=== PATIENT | female | born 1985 | race Two or more races ===

== ENCOUNTER 2016-12-18 23:15 | Emergency (ER) | payer OTHER ==
[2016-12-18 23:19] VITALS: BP 152/109
[2016-12-19] MEDS ORDERED: Ketorolac INJ* 60 MG/2 ML VIAL IM ONE (01:11)
[2016-12-19] MEDS ORDERED: HYDROmorphone* 2 MG/ML 1 ML SYR IM ONE (01:12)
[2016-12-19] MEDS ORDERED: Diazepam TAB(*) 5 MG PO ONE (01:12)
--- NOTE | 2016-12-19 06:50 | ED ---
Andrae Ortega Rebecca, scribed for Hoang Sanford MD on 12/19/16 at 0117 . Back Pain - HPI Summary HPI Summary: Pt is a 31 y/o F who presents to ED c/o acute on chronic lumbar back pain. Starting yesterday morning, the pt began experiencing worsening back pain which is currently severe, ranked 10/10. Pain is in the lumbar back with radiation down the RLE. Pain is characterized as spasmodic and tight with burning in the upper portion of the back, between the shoulder blades. Sx aggravated by movement, alleviated by nothing, unchanged by all of her home chronic pain medication (Lyrica, Dilaudid, slow-release Morphine, 600 mg Ibuprofen and a muscle relaxant). Denies N/V. PMHx scoliosis and PSHx spinal fusion. States that she intermittently experiences exacerbations of chronic back pain, necessitating an ED visit to alleviate pain. No recent spinal injections. - History of Current Complaint Chief Complaint: EDBackInjuryPain Stated Complaint: BACK PAIN Time Seen by Provider: 12/19/16 00:50 Hx Obtained From: Patient Onset/Duration: Still Present Back Pain Location: Is Discrete @ - Lumbar back and upperback between the shoulder blades, Radiates To - RLE Severity Currently: Severe Pain Intensity: 10 Pain Scale Used: 0-10 Numeric Character: Spasmodic, Burning - Upper back between the shoulder blades Aggravating Symptom(s): Movement Alleviating Symptom(s): Nothing - Allergies/Home Medications Allergies/Adverse Reactions: Allergies Allergy/AdvReac Type Severity Reaction Status Date / Time No Known Allergies Allergy Verified 12/19/16 00:54 PMH/Surg Hx/FS Hx/Imm Hx Endocrine/Hematology History: Denies: Hx Anticoagulant Therapy, Hx Diabetes Cardiovascular History: Denies: Hx Hypertension, Hx Pacemaker/ICD Respiratory History: Denies: Hx Asthma History: Reports: Hx Kidney Stones Denies: Hx Renal Disease Musculoskeletal History: Reports: Hx Back Problems, Hx Fibromyalgia - dx 2008, Hx Scoliosis Sensory History: Reports: Hx Contacts or Glasses - reading Denies: Hx Hearing Aid Opthamlomology History: Reports: Hx Contacts or Glasses - reading Neurological History: Reports: Hx Migraine, Other Neuro Impairments/Disorders - PAIN CLINIC PT Psychiatric History: Reports: Hx Anxiety, Hx Depression Denies: Hx Panic Disorder - Surgical History Surgery Procedure, Year, and Place: Spinal fusion 2000 [facility] Infectious Disease History: No Infectious Disease History: Denies: Traveled Outside the [place] in Last 30 Days - Family History Known Family History: Negative: Diabetes - Social History Alcohol Use: Occasionally Substance Use Type: Reports: Prescribed Substance Use Comment - Amount & Last Used: hydromorphone Smoking Status (MU): Current Every Day Smoker Type: Cigarettes Amount Used/How Often: Less then 10 cigarettes per day Have You Smoked in the Last Year: Yes Review of Systems Negative: Vomiting, Nausea Positive: Other - Lumbar back pain with radiation down the RLE, upper back pain between the shoulder blades All Other Systems Reviewed And Are Negative: Yes Physical Exam - Summary Physical Exam Summary: The patient is well-nourished in mild distress. The skin is warm and dry and skin color reflects adequate perfusion. HEENT: The head is normocephalic and atraumatic. The pupils are equal and reactive and not pinpoint. The conjunctivae are clear and without drainage. Nares are patent and without drainage. Mouth reveals moist mucous membranes and the throat is without erythema and exudate. The external ears are intact. The ear canals are patent and without drainage. The tympanic membranes are intact. Neck is supple with full range of motion and non-tender. Respiratory: Chest is non-tender. Lungs are clear to auscultation and breath sounds are symmetrical and equal. Cardiovascular: Hear is regular rate and rhythm. There is no murmur or rub auscultated. There is no peripheral edema and pulses are symmetrical and equal. Abdomen: The abdomen is soft and non-tender. There are normal bowel sounds heard in all four quadrants and there is no organomegaly palpated. Musculoskeletal: Some muscle spasms in her thoracic spine and has pain between the shoulder blades on both sides. Tenderness of the lower part of the spine, but no muscle spasms. Extremities are non-tender with full range of motion. There is good capillary refill. There is no peripheral edema or calf tenderness elicited. Good pulses distally. Neurological: Patient is alert and oriented to person, place and time. The patient has symmetrical motor strength in all four extremities. Deep tendon reflexes are symmetrical and equal in all four extremities. Psychiatric: The patient has an appropriate affect and does not exhibit any anxiety or depression. Triage Information Reviewed: Yes Vital Signs On Initial Exam: Initial Vitals Temp Pulse Resp BP Pulse Ox 98.8 F 119 17 152/109 98 12/18/16 23:16 12/18/16 23:16 12/18/16 23:16 12/18/16 23:16 12/18/16 23:16 Vital Signs Reviewed: Yes Diagnostics - Vital Signs Vital Signs Temp Pulse Resp BP Pulse Ox 12/18/16 23:16 98.8 F 119 17 152/109 98 - Laboratory Lab Statement: Any lab studies that have been ordered have been reviewed, and results considered in the medical decision making process. Back Pain Course/Dx - Course Assessment/Plan: Pt is a 31 y/o F who presents to ED c/o acute on chronic lumbar back pain. Starting yesterday morning, the pt began experiencing worsening back pain which is currently severe, ranked 10/10. Pain is in the lumbar back with radiation down the RLE. Pain is characterized as spasmodic and tight with burning in the upper portion of the back, between the shoulder blades. Sx aggravated by movement, alleviated by nothing, unchanged by all of her home chronic pain medication (Lyrica, Dilaudid, slow-release Morphine, 600 mg Ibuprofen and a muscle relaxant). Denies N/V. PMHx scoliosis and PSHx spinal fusion. States that she intermittently experiences exacerbations of chronic back pain, necessitating an ED visit to alleviate pain. No recent spinal injections. In the ED course, pt was given Valium, Dilaudid and Toradol. She will be D/C to home with Dx of acute exacerbation of chronic low back pain with a follow up with her PCP. She understands and agrees. Elevated BP noted and advised to f/u with PCP. - Diagnoses Provider Diagnoses: Acute exacerbation of chronic low back pain Discharge - Discharge Plan Condition: Stable Disposition: HOME Patient Education Materials: Chronic Back Pain (ED), Lower Back Exercises (ED) Referrals: Gertrude Gallagher MD [Primary Care Provider] - 3 Days The documentation as recorded by the Andrae coelho Rebecca accurately reflects the service I personally performed and the decisions made by me, Hoang Sanford MD.
== END 2016-12-19 02:08 | disposition home or self-care (01) ==
LOC: ED 23:15
DX: M54.5 Low back pain (principal); G89.29 Other chronic pain; F17.210 Nicotine dependence, cigarettes, uncomplicated
CPT/HCPCS: 99282; A9270-GY; J1170; J1885

== ENCOUNTER 2017-01-02 23:27 | Emergency (ER) | payer OTHER ==
[2017-01-03] MEDS ORDERED: NS 0.9% 1000 ML* 1,000 ML IV ONE (00:39)
[2017-01-03] MEDS ORDERED: Ondansetron INJ* 2 MG/ML VIAL IV ONE (00:39)
[2017-01-03] MEDS ORDERED: Ketorolac INJ* 30 MG/ML 1 ML VIAL IV PUSH ONE (00:46)
--- NOTE | 2017-01-03 00:51 | ED ---
GI/ HPI - HPI Summary HPI Summary: 31F presents with nausea, vomiting diarrhea for couple hours. she ate something different at a friends. She denies any one else with similar symptoms. She states had abdominal pain that resolved after she vomited. She denies any blood in her stool. She states they had spaghetti and meat balls. She denies any fever. She denies any previous abdominal surgeries. She denies any cough or sore throat. She denies any flank pain or dysuria. She takes morphine and Dilaudid for chronic back pain. - History of Current Complaint Chief Complaint: EDNauseaVomitDiarrh Time Seen by Provider: 01/03/17 00:38 Stated Complaint: ABD PAIN Pain Intensity: 4 - Allergy/Home Medications Allergies/Adverse Reactions: Allergies Allergy/AdvReac Type Severity Reaction Status Date / Time No Known Allergies Allergy Verified 01/03/17 03:54 PMH/Surg Hx/FS Hx/Imm Hx Endocrine/Hematology History: Denies: Hx Anticoagulant Therapy, Hx Diabetes Cardiovascular History: Denies: Hx Hypertension, Hx Pacemaker/ICD Respiratory History: Denies: Hx Asthma History: Reports: Hx Kidney Stones Denies: Hx Renal Disease Musculoskeletal History: Reports: Hx Back Problems, Hx Fibromyalgia - dx 2008, Hx Scoliosis Sensory History: Reports: Hx Contacts or Glasses - reading Denies: Hx Hearing Aid Opthamlomology History: Reports: Hx Contacts or Glasses - reading Neurological History: Reports: Hx Migraine, Other Neuro Impairments/Disorders - PAIN CLINIC PT Psychiatric History: Reports: Hx Anxiety, Hx Depression Denies: Hx Panic Disorder - Surgical History Surgery Procedure, Year, and Place: Spinal fusion 2000 [facility] Infectious Disease History: No Infectious Disease History: Denies: Traveled Outside the [place] in Last 30 Days - Family History Known Family History: Negative: Diabetes - Social History Alcohol Use: Occasionally Substance Use Type: Reports: Prescribed Substance Use Comment - Amount & Last Used: hydromorphone Smoking Status (MU): Current Every Day Smoker Type: Cigarettes Amount Used/How Often: Less then 10 cigarettes per day Have You Smoked in the Last Year: Yes Review of Systems Negative: Fever Negative: Chest Pain Negative: Shortness Of Breath Positive: Abdominal Pain, Vomiting, Diarrhea, Nausea All Other Systems Reviewed And Are Negative: Yes Physical Exam Triage Information Reviewed: Yes Vital Signs On Initial Exam: Initial Vitals Temp Pulse Resp BP Pulse Ox 97.4 F 122 18 101/52 98 01/02/17 23:28 01/02/17 23:28 01/02/17 23:28 01/02/17 23:28 01/02/17 23:28 Vital Signs Reviewed: Yes Appearance: Positive: Well-Appearing Skin: Positive: Warm, Dry Head/Face: Positive: Normal Head/Face Inspection Eyes: Positive: Normal, EOMI, FELICITAS, Conjunctiva Clear ENT: Positive: Normal ENT inspection, Pharynx normal, TMs normal Respiratory/Lung Sounds: Positive: Clear to Auscultation, Breath Sounds Present Cardiovascular: Positive: Normal, RRR Abdomen Description: Positive: Nontender, Soft Bowel Sounds: Positive: Present Diagnostics - Vital Signs Vital Signs Temp Pulse Resp BP Pulse Ox 01/02/17 23:28 97.4 F 122 18 101/52 98 - Laboratory Result Diagrams: 01/03/17 01:16 01/03/17 01:16 Lab Statement: Any lab studies that have been ordered have been reviewed, and results considered in the medical decision making process. GIGU Course/Dx - Course Course Of Treatment: 31F presents with nausea, vomiting diarrhea for couple hours. she ate something different at a friends. She denies any one else with similar symptoms. She states had abdominal pain that resolved after she vomited. She denies any blood in her stool. She states they had spaghetti and meat balls. She denies any fever. She denies any previous abdominal surgeries. She denies any cough or sore throat. She denies any flank pain or dysuria. abdomen nontender. gave zofran and fluids and patietn able to tolerate oral intake. - Diagnoses Differential Diagnoses - Female: Gastroenteritis (Viral), Gastroenteritis ( Bacterial), Urinary Tract Infection, Vomiting Provider Diagnoses: Nausea vomiting and diarrhea Discharge - Discharge Plan Condition: Good Disposition: HOME Prescriptions: Ondansetron ODT TAB* [Zofran 4 MG Odt TAB*] 4 mg PO Q6H PRN #20 tab.odt PRN Reason: Nausea Patient Education Materials: Acute Nausea and Vomiting (ED) Referrals: Gertrude Gallagher MD [Primary Care Provider] - Additional Instructions: Can take Zofran every 6 hours as needed for nausea Drink small amounts of fluid as tolerated When able to eat follow BRAT diet: Bananas, rice, applesauce, toast Take ibuprofen or Tylenol for pain as needed every 6 hours Follow up with primary within 5 days Return to ED if develop fever that does not respond to Tylenol or ibuprofen, severe abdominal pain, or any new or worsening symptoms
[2017-01-03 01:39] LABS: Hematocrit 48 % (35-47); Mean Corpuscular HGB Conc 33 g/dl (31-36); Mean Corpuscular Hemoglobin 28 pg (27-31); Mean Corpuscular Volume 84 fL (80-97); Mean Platelet Volume 8 um3 (7.4-10.4); Red Blood Count 5.69 10^6/ul (4.0-5.4); Red Cell Distribution Width 15 % (10.5-15); White Blood Count 14.6 10^3/ul (3.5-10.8)
[2017-01-03] MEDS ORDERED: Ondansetron ODT TAB* 4 MG PO ONE ×2 (01:41→02:51)
[2017-01-03 01:55] LABS: ALT 14 U/L (7-52); AST 18 U/L (13-39); Albumin 4.8 g/dL (3.2-5.2); Alkaline Phosphatase 90 U/L (34-104); Anion Gap 10 mmol/L (2-11); BUN/Creatinine Ratio 18.1 (8-20); Blood Urea Nitrogen 19 mg/dL (6-24); CO2 Carbon Dioxide 24 mmol/L (22-32); Calcium 9.8 mg/dL (8.6-10.3); Chloride 102 mmol/L (101-111); EGFR African American 79.7 (>60); Globulin 4.1 g/dL (2-4); Glucose 114 mg/dL (70-100); Lipase < 10 U/L (11.0-82.0); Potassium 4.2 mmol/L (3.5-5.0); Sodium 136 mmol/L (133-145); Total Protein 8.9 g/dL (6.4-8.9)
[2017-01-03 02:27] VITALS: BP 98/55
== END 2017-01-03 03:55 | disposition home or self-care (01) ==
LOC: ED 23:27
DX: R11.2 Nausea with vomiting, unspecified (principal); R19.7 Diarrhea, unspecified
CPT/HCPCS: 36415; 80053; 83690; 84702; 85025; 86141; 96361; 96374; 96375; 99284; A9270-GY; J1885; J2405

== ENCOUNTER → 2017-01-26 14:10 | Emergency (ER) | payer OTHER ==
[2017-01-26 16:01] LABS: Hematocrit 36 % (35-47); Hemoglobin 12.3 g/dl (12.0-16.0); Mean Corpuscular HGB Conc 34 g/dl (31-36); Mean Corpuscular Hemoglobin 29 pg (27-31); Mean Corpuscular Volume 85 fL (80-97); Mean Platelet Volume 8 um3 (7.4-10.4); Red Blood Count 4.27 10^6/ul (4.0-5.4); Red Cell Distribution Width 16 % (10.5-15); White Blood Count 12.5 10^3/ul (3.5-10.8)
[2017-01-26 16:45] LABS: ALT 13 U/L (7-52); AST 20 U/L (13-39); Albumin 4.4 g/dL (3.2-5.2); Alkaline Phosphatase 69 U/L (34-104); Anion Gap 9 mmol/L (2-11); BUN/Creatinine Ratio 15.1 (8-20); Blood Urea Nitrogen 11 mg/dL (6-24); CO2 Carbon Dioxide 29 mmol/L (22-32); Calcium 9.7 mg/dL (8.6-10.3); Chloride 100 mmol/L (101-111); EGFR African American 121.2 (>60); EGFR Non-African American 94.3 (>60); Globulin 3.8 g/dL (2-4); Glucose 97 mg/dL (70-100); Potassium 3.5 mmol/L (3.5-5.0); Sodium 138 mmol/L (133-145); Total Protein 8.2 g/dL (6.4-8.9)
[2017-01-26 16:50] LABS: TSH (Thyroid Stimulating Horm) 0.42 mcIU/mL (0.34-5.60)
[2017-01-26 17:01] LABS: Acetaminophen < 15 mcg/mL; Alcohol < 10 mg/dL (<10); Salicylate < 2.50 mg/dL (<30)
[2017-01-26 19:12] LABS: Urine Bacteria Absent (Absent); Urine Bilirubin Negative (Negative); Urine Glucose Negative (Negative); Urine Nitrite Negative (Negative)
[2017-01-26 19:15] LABS: Benzodiazepine Urine Screen None Detected (None Detect)
[2017-01-26 20:11] VITALS: BP 135/90
--- NOTE | 2017-01-26 22:03 | ED ---
William Ortega Benjamin, scribed for Ceferino Pearson MD on 01/26/17 at 1504 . Substance Abuse/Use - HPI Summary HPI Summary: 31yo female [place] from [facility]. Per EMS report, pt was found unresponsive in front of [facility] with snoring respiration, not responding to verbal or pain stimuli. Pt was given narcan en route. Pt states overdosing on her narcotic pain medications that she takes for her chronic back pain. Pt denies SI, just states taking so accidentally, to control her pain. - History Of Current Complaint Chief Complaint: EDOverdose Stated Complaint: OVERDOSE Time Seen by Provider: 01/26/17 14:29 Hx Obtained From: Patient, EMS ?: No Ingestion History: Type/Name Of Drug - narcotics Overdose Characteristics: Oral Severity Initially: Severe Severity Currently: Mild Aggravating Factor(s): Nothing Alleviating Factor(s): Nothing Associated Signs And Symptoms: Negative - Allergies/Home Medications Allergies/Adverse Reactions: Allergies Allergy/AdvReac Type Severity Reaction Status Date / Time No Known Allergies Allergy Verified 01/03/17 03:54 PMH/Surg Hx/FS Hx/Imm Hx Endocrine/Hematology History: Denies: Hx Anticoagulant Therapy, Hx Diabetes Cardiovascular History: Denies: Hx Hypertension, Hx Pacemaker/ICD Respiratory History: Denies: Hx Asthma History: Reports: Hx Kidney Stones Denies: Hx Renal Disease Musculoskeletal History: Reports: Hx Back Problems, Hx Fibromyalgia - dx 2008, Hx Scoliosis Sensory History: Reports: Hx Contacts or Glasses - reading Denies: Hx Hearing Aid Opthamlomology History: Reports: Hx Contacts or Glasses - reading Neurological History: Reports: Hx Migraine, Other Neuro Impairments/Disorders - PAIN CLINIC PT Psychiatric History: Reports: Hx Anxiety, Hx Depression Denies: Hx Panic Disorder - Surgical History Surgery Procedure, Year, and Place: Spinal fusion 2000 [facility] Infectious Disease History: Yes Infectious Disease History: Denies: Traveled Outside the [place] in Last 30 Days - Family History Known Family History: Negative: Hypertension, Diabetes - Social History Alcohol Use: Occasionally Substance Use Type: Reports: Prescribed Substance Use Comment - Amount & Last Used: hydromorphone Smoking Status (MU): Heavy Every Day Tobacco Smoker Type: Cigarettes Amount Used/How Often: Less then 10 cigarettes per day Have You Smoked in the Last Year: Yes Review of Systems Constitutional: Negative Eyes: Negative ENT: Negative Cardiovascular: Negative Respiratory: Negative Gastrointestinal: Negative Genitourinary: Negative Positive: Myalgia - chronic back pain Skin: Negative Neurological: Negative Psychological: Normal All Other Systems Reviewed And Are Negative: Yes Physical Exam Triage Information Reviewed: Yes Vital Signs On Initial Exam: Initial Vitals Temp Pulse Resp BP Pulse Ox 98.1 F 119 12 140/95 100 01/26/17 14:12 01/26/17 14:12 01/26/17 14:12 01/26/17 14:12 01/26/17 14:12 Vital Signs Reviewed: Yes Appearance: Positive: Well-Appearing, No Pain Distress, Well-Nourished Skin: Positive: Warm, Skin Color Reflects Adequate Perfusion, Dry Head/Face: Positive: Normal Head/Face Inspection Eyes: Positive: Normal ENT: Positive: Normal ENT inspection, Hearing grossly normal Neck: Positive: Supple, Nontender Respiratory/Lung Sounds: Positive: Clear to Auscultation, Breath Sounds Present Cardiovascular: Positive: Pulses are Symmetrical in both Upper and Lower Extremities, Tachycardia Abdomen Description: Positive: Nontender, Soft Bowel Sounds: Positive: Present Musculoskeletal: Positive: Strength/ROM Intact Neurological: Positive: Sensory/Motor Intact, Alert, Oriented to Person Place, Time Psychiatric: Positive: Affect/Mood Appropriate - Alex Coma Scale Coma Scale Total: 15 Diagnostics - Vital Signs Vital Signs Temp Pulse Resp BP Pulse Ox 01/26/17 14:41 121 18 123/80 01/26/17 14:33 120 17 123/80 99 01/26/17 14:30 121 99 01/26/17 14:12 98.1 F 119 12 140/95 100 - Laboratory Lab Results: Lab Results 01/26/17 01/26/17 01/26/17 Range/Units 15:50 15:50 18:43 WBC 12.5 H (3.5-10.8) 10^3/ul RBC 4.27 (4.0-5.4) 10^6/ul Hgb 12.3 (12.0-16.0) g/dl Hct 36 (35-47) % MCV 85 (80-97) fL MCH 29 (27-31) pg MCHC 34 (31-36) g/dl RDW 16 H (10.5-15) % Plt Count 352 (150-450) 10^3/ul MPV 8 (7.4-10.4) um3 Neut % (Auto) 80.8 (38-83) % Lymph % (Auto) 12.2 L (25-47) % Elmore % (Auto) 6.4 (1-9) % Eos % (Auto) 0.2 (0-6) % Baso % (Auto) 0.4 (0-2) % Absolute Neuts (auto) 10.1 H (1.5-7.7) 10^3/ul Absolute Lymphs (auto) 1.5 (1.0-4.8) 10^3/ul Absolute Monos (auto) 0.8 (0-0.8) 10^3/ul Absolute Eos (auto) 0 (0-0.6) 10^3/ul Absolute Basos (auto) 0.1 (0-0.2) 10^3/ul Absolute Nucleated RBC 0 10^3/ul Nucleated RBC % 0 Sodium 138 (133-145) mmol/L Potassium 3.5 (3.5-5.0) mmol/L Chloride 100 L (101-111) mmol/L Carbon Dioxide 29 (22-32) mmol/L Anion Gap 9 (2-11) mmol/L BUN 11 (6-24) mg/dL Creatinine 0.73 (0.51-0.95) mg/dL Est GFR ( Amer) 121.2 (>60) Est GFR (Non-Af Amer) 94.3 (>60) BUN/Creatinine Ratio 15.1 (8-20) Glucose 97 (70-100) mg/dL Calcium 9.7 (8.6-10.3) mg/dL Total Bilirubin 0.20 (0.2-1.0) mg/dL AST 20 (13-39) U/L ALT 13 (7-52) U/L Alkaline Phosphatase 69 (34-104) U/L Total Protein 8.2 (6.4-8.9) g/dL Albumin 4.4 (3.2-5.2) g/dL Globulin 3.8 (2-4) g/dL Albumin/Globulin Ratio 1.2 (1-3) TSH 0.42 (0.34-5.60) mcIU/mL Beta HCG, Quant < 0.60 mIU/mL Urine Color Urine Appearance Urine pH (5-9) Ur Specific Thompson (1.010-1.030) Urine Protein (Negative) Urine Ketones (Negative) Urine Blood (Negative) Urine Nitrate (Negative) Urine Bilirubin (Negative) Urine Urobilinogen (Negative) Ur Leukocyte Esterase (Negative) Urine WBC (Auto) (Absent) Urine RBC (Auto) (Absent) Ur Squamous Epith Cells (Absent) Urine Bacteria (Absent) Urine Glucose (Negative) Salicylates < 2.50 (<30) mg/dL Urine Opiates Screen Presumptive positive H (None Detect) Acetaminophen < 15 mcg/mL Ur Barbiturates Screen None detected (None Detect) Ur Phencyclidine Scrn None detected (None Detect) Ur Amphetamines Screen None detected (None Detect) U Benzodiazepines Scrn None detected (None Detect) Urine Cocaine Screen None detected (None Detect) U Cannabinoids Screen None detected (None Detect) Serum Alcohol < 10 (<10) mg/dL 01/26/17 Range/Units 18:43 WBC (3.5-10.8) 10^3/ul RBC (4.0-5.4) 10^6/ul Hgb (12.0-16.0) g/dl Hct (35-47) % MCV (80-97) fL MCH (27-31) pg MCHC (31-36) g/dl RDW (10.5-15) % Plt Count (150-450) 10^3/ul MPV (7.4-10.4) um3 Neut % (Auto) (38-83) % Lymph % (Auto) (25-47) % Elmore % (Auto) (1-9) % Eos % (Auto) (0-6) % Baso % (Auto) (0-2) % Absolute Neuts (auto) (1.5-7.7) 10^3/ul Absolute Lymphs (auto) (1.0-4.8) 10^3/ul Absolute Monos (auto) (0-0.8) 10^3/ul Absolute Eos (auto) (0-0.6) 10^3/ul Absolute Basos (auto) (0-0.2) 10^3/ul Absolute Nucleated RBC 10^3/ul Nucleated RBC % Sodium (133-145) mmol/L Potassium (3.5-5.0) mmol/L Chloride (101-111) mmol/L Carbon Dioxide (22-32) mmol/L Anion Gap (2-11) mmol/L BUN (6-24) mg/dL Creatinine (0.51-0.95) mg/dL Est GFR ( Amer) (>60) Est GFR (Non-Af Amer) (>60) BUN/Creatinine Ratio (8-20) Glucose (70-100) mg/dL Calcium (8.6-10.3) mg/dL Total Bilirubin (0.2-1.0) mg/dL AST (13-39) U/L ALT (7-52) U/L Alkaline Phosphatase (34-104) U/L Total Protein (6.4-8.9) g/dL Albumin (3.2-5.2) g/dL Globulin (2-4) g/dL Albumin/Globulin Ratio (1-3) TSH (0.34-5.60) mcIU/mL Beta HCG, Quant mIU/mL Urine Color Yellow Urine Appearance Clear Urine pH 6.0 (5-9) Ur Specific Thompson 1.010 (1.010-1.030) Urine Protein Negative (Negative) Urine Ketones Negative (Negative) Urine Blood 1+ H (Negative) Urine Nitrate Negative (Negative) Urine Bilirubin Negative (Negative) Urine Urobilinogen Negative (Negative) Ur Leukocyte Esterase 1+ H (Negative) Urine WBC (Auto) 2+(11-20/hpf) H (Absent) Urine RBC (Auto) 1+(3-5/hpf) H (Absent) Ur Squamous Epith Cells Present H (Absent) Urine Bacteria Absent (Absent) Urine Glucose Negative (Negative) Salicylates (<30) mg/dL Urine Opiates Screen (None Detect) Acetaminophen mcg/mL Ur Barbiturates Screen (None Detect) Ur Phencyclidine Scrn (None Detect) Ur Amphetamines Screen (None Detect) U Benzodiazepines Scrn (None Detect) Urine Cocaine Screen (None Detect) U Cannabinoids Screen (None Detect) Serum Alcohol (<10) mg/dL Result Diagrams: 01/26/17 15:50 01/26/17 15:50 Lab Statement: Any lab studies that have been ordered have been reviewed, and results considered in the medical decision making process. Course/Dx - Course Course Of Treatment: Medically cleared for MHE at 1710 hour. Ms. Nolan Rosario admits to taking too many of her opiate pain medications for chronic pain. She denies trying to kill herself but admits that she is frustrated that her pain is not being managed. Her narcan wore off and she was OK so she is cleared for a MHE and awaiting that now. - Diagnoses Provider Diagnoses: Opiate overdose Discharge - Discharge Plan Condition: Stable Disposition: OTHER Discharge Disposition Comment: Change of shift The documentation as recorded by the William coelho Benjamin accurately reflects the service I personally performed and the decisions made by me, Ceferino Pearson MD.
--- NOTE | 2017-01-28 14:53 | PN ---
Progress Note - Progress Note Date of Service: 01/28/17 Note: Patient urine culture grew normal miles and enterobacter aerogenes 10-25,000. will not treat at this time as likely contaminate.
== END ==
LOC: ED 14:10
DX: T40.2X1A Poisoning by other opioids, accidental (unintentional), initial encounter (principal); Y92.9 Unspecified place or not applicable; Z04.8 Encounter for examination and observation for other specified reasons; F41.9 Anxiety disorder, unspecified; F32.9 Major depressive disorder, single episode, unspecified; Z87.442 Personal history of urinary calculi; F17.210 Nicotine dependence, cigarettes, uncomplicated; Z32.02 Encounter for pregnancy test, result negative
CPT/HCPCS: 36415; 80053; 80307; 80320; 80329; 81003; 81015; 84443; 84702; 85025; 87077; 87086; 87186; 99285; G0480

== ENCOUNTER 2017-03-10 21:01 | Emergency (ER) | payer OTHER ==
[2017-03-10 22:32] LABS: Hematocrit 38 % (35-47); Hemoglobin 12.6 g/dl (12.0-16.0); Mean Corpuscular HGB Conc 33 g/dl (31-36); Mean Corpuscular Hemoglobin 28 pg (27-31); Mean Corpuscular Volume 86 fL (80-97); Mean Platelet Volume 8 um3 (7.4-10.4); Red Blood Count 4.43 10^6/ul (4.0-5.4); Red Cell Distribution Width 14 % (10.5-15); White Blood Count 6.9 10^3/ul (3.5-10.8)
[2017-03-10 22:46] LABS: ALT 12 U/L (7-52); AST 13 U/L (13-39); Albumin 4.1 g/dL (3.2-5.2); Alkaline Phosphatase 71 U/L (34-104); Anion Gap 6 mmol/L (2-11); BUN/Creatinine Ratio 15.9 (8-20); Blood Urea Nitrogen 10 mg/dL (6-24); CO2 Carbon Dioxide 27 mmol/L (22-32); Calcium 9.8 mg/dL (8.6-10.3); Chloride 105 mmol/L (101-111); EGFR African American 143.7 (>60); EGFR Non-African American 111.7 (>60); Globulin 3.7 g/dL (2-4); Glucose 86 mg/dL (70-100); Potassium 4.1 mmol/L (3.5-5.0); Sodium 138 mmol/L (133-145); Total Protein 7.8 g/dL (6.4-8.9)
[2017-03-10 23:08] LABS: Acetaminophen < 15 mcg/mL; Alcohol < 10 mg/dL (<10); Salicylate < 2.50 mg/dL (<30)
[2017-03-10 23:13] LABS: Urine Bacteria 3+ (Absent); Urine Bilirubin Negative (Negative); Urine Glucose Negative (Negative); Urine Nitrite Negative (Negative)
[2017-03-10 23:24] LABS: TSH (Thyroid Stimulating Horm) 0.45 mcIU/mL (0.34-5.60)
[2017-03-10 23:26] LABS: Benzodiazepine Urine Screen None Detected (None Detect)
[2017-03-10] MEDS ORDERED: Acetaminophen TAB* 325 MG PO ONE (23:38)
[2017-03-11 01:53] VITALS: BP 137/99
[2017-03-11] MEDS ORDERED: Ibuprofen TAB* 600 MG PO ONE (05:10)
--- NOTE | 2017-03-11 05:25 | ED ---
Annalee Ortega Gabriel, scribed for Gene Mishra on 03/10/17 at 2236 . Psychiatric Complaint - HPI Summary HPI Summary: This patient is a 31 year old F presenting to [facility] accompanied by her friend with a chief complaint of anxiety and PTSD. Pt states she cannot eat or sleep and when she does eat she over eats. She also reports uncontrollable crying, hives, and body shakes. She denies any SI. Patient is on medication for anxiety but it isnt working. - History Of Current Complaint Chief Complaint: EDMentalHealth Time Seen by Provider: 03/10/17 21:58 Hx Obtained From: Patient Onset/Duration: Still Present Timing: Constant Character: Anxious Alleviating Factor(s): Nothing Has Suicidal: Denies: Thoughts - Allergies/Home Medications Allergies/Adverse Reactions: Allergies Allergy/AdvReac Type Severity Reaction Status Date / Time No Known Allergies Allergy Verified 03/10/17 21:08 PMH/Surg Hx/FS Hx/Imm Hx Previously Healthy: No Endocrine/Hematology History: Denies: Hx Anticoagulant Therapy, Hx Diabetes Cardiovascular History: Denies: Hx Hypertension, Hx Pacemaker/ICD Respiratory History: Denies: Hx Asthma History: Reports: Hx Kidney Stones Denies: Hx Renal Disease Musculoskeletal History: Reports: Hx Back Problems, Hx Fibromyalgia - dx 2008, Hx Scoliosis Sensory History: Reports: Hx Contacts or Glasses - reading Denies: Hx Hearing Aid Opthamlomology History: Reports: Hx Contacts or Glasses - reading Neurological History: Reports: Hx Migraine, Other Neuro Impairments/Disorders - PAIN CLINIC PT Psychiatric History: Reports: Hx Anxiety, Hx Depression Denies: Hx Eating Disorder, Hx Panic Disorder - Surgical History Surgery Procedure, Year, and Place: Spinal fusion 2000 [facility] Infectious Disease History: No Infectious Disease History: Denies: Traveled Outside the [place] in Last 30 Days - Family History Known Family History: Negative: Hypertension, Diabetes - Social History Alcohol Use: Occasionally Hx Substance Use: No Substance Use Type: Reports: None Substance Use Comment - Amount & Last Used: hydromorphone Hx Tobacco Use: Yes Smoking Status (MU): Current Every Day Smoker Type: Cigarettes Amount Used/How Often: 1/2 PPD Have You Smoked in the Last Year: Yes Review of Systems Negative: Fever Psychological: Normal - SI All Other Systems Reviewed And Are Negative: Yes Physical Exam - Summary Physical Exam Summary: Appearance: Well appearing, no pain distress. Depressed affect. Skin: warm, dry, reflects adequate perfusion Head/face: normal Eyes: EOMI, FELICITAS ENT: normal Neck: supple, non-tender Respiratory: CTA, breath sounds present Cardiovascular: RRR, pulses symmetrical Abdomen: non-tender, soft Bowel: present Musculoskeletal: normal, strength/ROM intact Neuro: normal, sensory motor intact, A&Ox3 Triage Information Reviewed: Yes Vital Signs On Initial Exam: Initial Vitals Temp Pulse Resp BP Pulse Ox 98.6 F 102 16 146/95 100 03/10/17 21:03 03/10/17 21:03 03/10/17 21:03 03/10/17 21:03 03/10/17 21:03 Vital Signs Reviewed: Yes Diagnostics - Vital Signs Vital Signs Temp Pulse Resp BP Pulse Ox 03/10/17 21:03 98.6 F 102 16 146/95 100 - Laboratory Result Diagrams: 03/10/17 22:10 03/10/17 22:10 Lab Statement: Any lab studies that have been ordered have been reviewed, and results considered in the medical decision making process. Course/Dx - Course Assessment/Plan: This patient is a 31 year old F presenting to [facility] accompanied by her friend with a chief complaint of anxiety and PTSD. Blood and urine were collected without significant abnormalities. The patient received a MHE and was deemed stable to return home with diagnoses of anxiety and depression. The patient is agreeable with this plan - Differential Dx/Clinical Impression Differential Diagnosis/HQI/PQRI: Positive: Anxiety, Depression Provider Diagnosis: Depression, Anxiety Discharge - Discharge Plan Condition: Stable Disposition: HOME Referrals: Gertrude Gallagher MD [Primary Care Provider] - The documentation as recorded by the Annalee coelho Gabriel accurately reflects the service I personally performed and the decisions made by , Gene Mishra.
--- NOTE | 2017-03-14 09:02 | PN ---
Progress Note - Progress Note Date of Service: 03/14/17 Note: patient urine culture grew Enterobacter aerogenese >100,000. placed on bactrim DSx3 days. left vm.
== END 2017-03-11 05:45 | disposition home or self-care (01) ==
LOC: ED 21:01
DX: F32.9 Major depressive disorder, single episode, unspecified (principal); F41.9 Anxiety disorder, unspecified; F43.10 Post-traumatic stress disorder, unspecified; L50.9 Urticaria, unspecified; Z87.442 Personal history of urinary calculi; F17.210 Nicotine dependence, cigarettes, uncomplicated
CPT/HCPCS: 36415; 80053; 80307; 80320; 80329; 81003; 81015; 84443; 85025; 87077; 87086; 87186; 99284; A9270-GY; G0480

== ENCOUNTER 2018-04-16 11:59 | Emergency (ER) | payer OTHER ==
[2018-04-16] MEDS ORDERED: Ketorolac INJ* 30 MG/ML 1 ML VIAL IV PUSH ONE (12:53)
[2018-04-16] MEDS ORDERED: Clindamycin 600 MG IVPREMIX(* 600 MG/50 ML SDV IV ONE (12:53)
[2018-04-16] MEDS ORDERED: Dexamethasone IV* 4 MG/ML 1 ML (4 MG) IV SLOW PU ONE (12:53)
[2018-04-16] MEDS: NS 0.9% 1000 ML* 2,000 ML IV ONE ×2 (13:13→14:28)
--- NOTE | 2018-04-16 13:14 | ED ---
Throat Pain/Nasal Congestion - HPI Summary HPI Summary: Patient is a 32-year-old female with a history of chronic back pain presenting to the ED with right-sided facial swelling 2 days. She states she broke the lower tooth #30 last year and it has been swelling intermittently since that time. However the swelling has been very mild without pain. 2 days ago she awoke with pain and moderate amount of swelling, today she awoke with worsening swelling. Continues to be able to open her jaw and denies trismus. Denies any odynophagia or dysphagia. Patient denies any difficulty with breathing. She denies any fevers, sweats, chills. She endorses radiation of pain into the right ear and down into the right side of the neck. - History of Current Complaint Chief Complaint: EDDentalPain Time Seen by Provider: 04/16/18 12:10 Onset/Duration: Sudden Onset Severity: Moderate Associated Signs And Symptoms: Negative: Dysphagia, Drooling, Wheezing, Hoarseness, Sinus Discomfort, Nasal Discharge - Epiglottits Risk Factors Epiglottis Risk Factors: Negative - Allergies/Home Medications Allergies/Adverse Reactions: Allergies Allergy/AdvReac Type Severity Reaction Status Date / Time No Known Allergies Allergy Verified 04/16/18 12:05 Home Medications: Home Medications Meloxicam(NF) [Mobic(NF)] 15 mg PO DAILY 04/16/18 [History Confirmed 04/16/18] Oxymorphone HCl [Opana] 5 mg PO DAILY 04/16/18 [History Confirmed 04/16/18] Pregabalin CAP(*) [Lyrica CAP(*)] 100 mg PO BID 04/16/18 [History Confirmed 07/30] PMH/Surg Hx/FS Hx/Imm Hx Previously Healthy: Yes Endocrine/Hematology History: Denies: Hx Anticoagulant Therapy, Hx Diabetes Cardiovascular History: Denies: Hx Hypertension, Hx Pacemaker/ICD Respiratory History: Denies: Hx Asthma History: Reports: Hx Kidney Stones Denies: Hx Renal Disease Musculoskeletal History: Reports: Hx Back Problems, Hx Fibromyalgia - dx 2008, Hx Scoliosis Sensory History: Reports: Hx Contacts or Glasses - reading Denies: Hx Hearing Aid Opthamlomology History: Reports: Hx Contacts or Glasses - reading Neurological History: Reports: Hx Migraine, Other Neuro Impairments/Disorders - SPINAL FUSION 2000 Psychiatric History: Reports: Hx Anxiety, Hx Depression Denies: Hx Eating Disorder, Hx Panic Disorder - Surgical History Surgery Procedure, Year, and Place: Spinal fusion [address] [facility] - Immunization History Hx Pertussis Vaccination: No Immunizations Up to Date: Yes Infectious Disease History: No Infectious Disease History: Denies: Traveled Outside the [place] in Last 30 Days - Family History Known Family History: Negative: Hypertension, Diabetes - Social History Occupation: Unemployed Lives: With Family Alcohol Use: Occasionally Hx Substance Use: No Substance Use Type: Reports: None Substance Use Comment - Amount & Last Used: hydromorphone Hx Tobacco Use: Yes Smoking Status (MU): Current Every Day Smoker Type: Cigarettes Amount Used/How Often: 1/2 PPD Have You Smoked in the Last Year: Yes Review of Systems Constitutional: Negative Negative: Fever, Chills, Fatigue, Skin Diaphoresis Positive: Dental Pain, Ear Ache. Negative: Sore Throat, Nasal Discharge Negative: Palpitations, Chest Pain Negative: Shortness Of Breath, Cough Genitourinary: Negative Positive: no symptoms reported, see HPI Negative: Arthralgia, Myalgia Skin: Negative Neurological: Negative All Other Systems Reviewed And Are Negative: Yes Physical Exam Triage Information Reviewed: Yes Vital Signs On Initial Exam: Initial Vitals Temp Pulse Resp BP Pulse Ox 98.9 F 121 19 135/78 96 04/16/18 12:00 04/16/18 12:00 04/16/18 12:00 04/16/18 12:00 04/16/18 12:00 Vital Signs Reviewed: Yes Appearance: Positive: Well-Appearing, Ill-Appearing Skin: Positive: Warm, Skin Color Reflects Adequate Perfusion Head/Face: Positive: Normal Head/Face Inspection Eyes: Positive: EOMI, FELICITAS, Conjunctiva Clear ENT: Positive: TMs normal, Other - right sided swelling to the cheek Neck: Positive: Supple, No Lymphadenopathy Respiratory/Lung Sounds: Positive: Clear to Auscultation, Breath Sounds Present Cardiovascular: Positive: RRR, Pulses are Symmetrical in both Upper and Lower Extremities Musculoskeletal: Positive: Normal, Strength/ROM Intact Neurological: Positive: Speech Normal Psychiatric: Positive: Normal, Affect/Mood Appropriate AVPU Assessment: Alert Diagnostics - Vital Signs Vital Signs Temp Pulse Resp BP Pulse Ox 04/16/18 12:00 98.9 F 121 19 135/78 96 - Laboratory Result Diagrams: 04/16/18 12:38 04/16/18 12:38 Lab Statement: Any lab studies that have been ordered have been reviewed, and results considered in the medical decision making process. EENT Course/Dx - Course Course Of Treatment: During the course treatment, the patient is evaluated for right-sided facial swelling. The facial swelling is moderate to severe. She continues to be able to open her jaw and there is no trismus identified. There is no obvious signs of infection or abscess around the tooth or come line. Small amount of erythema to the outside of the right cheek without fluctuant area which would require drainage. CT maxillofacial obtained. Clindamycin, Decadron and Toradol given IV. Patient feels improved and swelling decreased slightly. As maxillofacial did not reveal any loculated abscess to require drainage, I believe she is safe at this time for discharge with outpatient antibiotics. Patient is given prescription for clindamycin. She is given one for home for this evening. She will continue to take her pain medication if needed and will use ice and heat to the area. She denies any other symptoms at this time and remains afebrile. - Differential Diagnoses Differential Diagnoses: Other - dental abscess - Diagnoses Provider Diagnoses: Cellulitis Discharge - Sign-Out/Discharge Documenting (check all that apply): Patient Departure - Discharge Plan Condition: Stable Disposition: HOME Prescriptions: Clindamycin Cap(NF) [Clindamycin Cap 300 mg Cap(NF)] 300 mg PO Q6H #28 cap Patient Education Materials: Dental Abscess (ED) Referrals: Brennan Bianchi MD [Primary Care Provider] - Additional Instructions: Ice and heat intermittently Clindamycin 300mg four times daily x 7 days - Billing Disposition and Condition Condition: STABLE Disposition: Home
[2018-04-16 13:48] LABS: ABS Basophils 0 10^3/ul (0-0.2); ABS Eosinophils 0 10^3/ul (0-0.6); ABS Lymphocytes 1.7 10^3/ul (1.0-4.8); ABS Monocytes 0.8 10^3/ul (0-0.8); ABS Nucleated RBC 0 10^3/ul; Eosinophil % 0.6 %; Hematocrit 36 % (35-47); Hemoglobin 11.7 g/dl (12.0-16.0); Lymphocyte % 23.1 %; Mean Corpuscular HGB Conc 33 g/dl (31-36); Mean Corpuscular Hemoglobin 28 pg (27-31); Mean Corpuscular Volume 87 fL (80-97); Mean Platelet Volume 7.6 fL (7.4-10.4); Nucleated Red Blood Cells % 0; Platelet Count 301 10^3/ul (150-450); Red Blood Count 4.14 10^6/ul (4.00-5.40); Red Cell Distribution Width 15 % (10.5-15); White Blood Count 7.6 10^3/ul (3.5-10.8)
[2018-04-16 14:00] LABS: Albumin 3.9 g/dL (3.2-5.2); Albumin/Globulin Ratio 1.3 (1-3); BUN/Creatinine Ratio 18.5 (8-20); C Reactive Protein 119.44 mg/L (<8.01); Calcium 8.7 mg/dL (8.6-10.3); EGFR Non-African American 132.6 (>60); Globulin 2.9 g/dL (2-4); Potassium 4.1 mmol/L (3.5-5.0); Total Bilirubin 0.2 mg/dL (0.2-1.0); Total Protein 6.8 g/dL (6.4-8.9)
[2018-04-16] MEDS ORDERED: Clindamycin CAP* 150 MG PO ONE (15:46)
[2018-04-16 15:52] VITALS: BP 128/88
== END 2018-04-16 15:51 | disposition home or self-care (01) ==
LOC: ED 11:59
DX: L03.90 Cellulitis, unspecified (principal); K08.89 Other specified disorders of teeth and supporting structures; H92.09 Otalgia, unspecified ear
CPT/HCPCS: 36415; 70486; 80053; 83605; 85025; 86140; 87040; 96361; 96365; 96375; 99282; A9270-GY; J1100; J1885